=== PATIENT | female | born 1970 | race Asian ===

== ENCOUNTER 2020-11-20 18:08 | Outpatient (CLI) | payer BC | END 2020-11-20 18:09 | disposition EMS.NT | LOC: EMS 18:08 | DX: S09.90XA Unspecified injury of head, initial encounter (principal); R07.89 Other chest pain; M25.511 Pain in right shoulder; R11.0 Nausea; R42 Dizziness and giddiness; W17.89XA Other fall from one level to another, initial encounter ==